=== PATIENT | male | born 1935 | race Caucasian/White ===

== ENCOUNTER 2018-04-18 07:27 | Inpatient (IN) ==
--- NOTE | 2018-04-18 07:39 | Emergency Department Note ---
Disposition Clinical Impression: Weakness, Hyponatremia Disposition: Transfer Short-Term Hosp Condition: Serious Time of Disposition: 09:01 ( to admit) Weakness HPI - General Chief complaint: ED General Medical Stated complaint: LOW BACK PAIN POST FALL Time Seen by Provider: 04/18/18 07:27 Source: patient, family, EMS Mode of arrival: EMS Limitations: altered mental status, physical limitation, age Nursing Notes Reviewed: Yes Vital Signs Reviewed: Yes - History of Present Illness HPI Narrative: Patient has presented by EMS with complaint of generalized weakness and frequent falls. He has a history of Parkinson's but with this some generalized increased weakness over the course of months. He had a fall yesterday evening and was laying forward on the floor. Squad was called as he could not get up and they did assist him off the floor. He indicated that he "felt fine" and the patient was not transported to the emergency department. He slept tonight on a mattress on the floor and again was too weak and "unable to get up". The squad was called again and he has been brought in for evaluation. He states this morning that he "just could not move". He does have low back pain with a history of herniated disc in his back. He states his back pain is a little worse. His family states he seems a little more confused. He denies hitting his head but he does have trauma from a previous fall. He required suture repair his right forehead. He has recently started on Zoloft a couple days ago. Denies other change in medicines. Denies fevers or chills but did have some nausea and vomited once yesterday evening. They think this might of been just related to them trying to get off the floor. He has not been having diarrhea, abdominal pain or bloody or black stools. Denies chest pain or any abnormal shortness of breath. They do note that he has some asthma. He has not been having cough or congestion. He denies any headache or visual changes. He does have a scab from a fall on January 31 still on the right side of his forehead. Family was concerned that he might be dehydrated. He has been maintaining oral intake. They do not understand why he has "just weak all over ". Pt Subjective Complaint: generalized weakness/fatigue Onset (ago): month(s) Duration: gradually worsening Location: generalized Pain Severity: moderate If pain, quality: aching Improves with: none Worsens with: none Context: new medication, trauma/injury Associated symptoms: Reports: confusion. Denies: chest pain, dark stools, diaphoresis, dysuria, easy bruising, fever/chills, headaches, loss of appetite, nausea/vomiting, myalgias, rash, shortness of breath, syncope - Related Data Home Medications Medication Instructions Recorded Confirmed Fluticasone/Salmeterol [Advair 1 puff IH BID 06/18/15 04/18/18 250-50 Diskus] Omeprazole [PriLOSEC] 40 mg PO DAILY 06/18/15 04/18/18 Simvastatin [Zocor] 40 mg PO DAILY 06/18/15 04/18/18 Carbidopa/Levodopa 25/100 [Sinemet 1 each PO BID 04/18/18 04/18/18 25/100] Carbidopa/Levodopa 25/100 [Sinemet 1.5 each PO QAM 04/18/18 04/18/18 25100] Rivastigmine Tartrate (oral) 4.5 mg PO BID 04/18/18 04/18/18 [Exelon] Sertraline [Zoloft] 50 mg PO DAILY 04/18/18 04/18/18 Allergies Allergy/AdvReac Type Severity Reaction Status Date / Time No Known Allergies Allergy Verified 11/07/17 19:01 All systems ED: reviewed and negative except as stated. Past Medical History - Past Medical History Attestation: Yes The following information was validated with the patient. Source: patient, obtained from family, nursing notes reviewed Medical history: Reports: asthma, coronary artery disease, other (Parkinsonism, frequent falls) Surgical history: Reports: angioplasty/stent, herniorrhaphy, orthopedic, other ( Right shoulder repair) Psychiatric history: Reports: no psych history - Social History Smoking Status: Never smoker Smokeless Tobacco Status: No Alcohol use: Reports: heavy Drug use: Reports: none Physical Exam - General Limitations: physical limitation General appearance: in no apparent distress, other (Patient is somewhat sluggish in his responses but appropriate.) - Head Head exam: other (Patient has an old scar in scab on his right forehead without other new tenderness, swelling or abrasion.) - Eye Eye exam: Present: normal appearance, PERRL, EOMI - ENT ENT exam: normal exam, normal oropharynx, mucous membranes moist - Neck Neck exam: Present: normal inspection, full ROM, trachea midline. Absent: meningismus, lymphadenopathy - Chest Chest inspection: Present: normal inspection, symmetric chest wall rise - Respiratory Respiratory exam: Present: normal lung sounds bilaterally. Absent: respiratory distress, wheezes, prolonged expiratory phase - Cardiovascular Cardiovascular exam: Present: regular rate, normal rhythm, normal heart sounds - Abdominal Exam Abdominal exam: Present: soft, Non-Tender, normal bowel sounds. Absent: tenderness, distention, guarding, rebound, rigidity - Extremities Exam Extremities exam: Present: normal inspection, full ROM, normal capillary refill. Absent: tenderness, pedal edema - Expanded Lower Extremity Exam Neurovascular/Tendon exam: Present: normal capillary refill. Absent: motor deficit, sensory deficit, tendon deficit Gait: not tested/not observed - Neurological Exam Neurological exam: Present: alert, CN II-XII intact. Absent: motor sensory deficit - Psychiatric Psychiatric exam: Present: flat affect. Absent: agitated, anxious - Skin Skin exam: Present: warm, dry, intact, normal color. Absent: rash, diaphoresis , pallor Course Vital Signs Temperature 99.9 F H 04/18/18 07:29 Pulse Rate 64 04/18/18 07:29 Respiratory Rate 18 04/18/18 07:29 Blood Pressure 137/81 04/18/18 07:29 O2 Sat by Pulse Oximetry 96 04/18/18 07:29 Temperature 98.5 F 04/19/18 07:10 Pulse Rate 60 04/19/18 07:10 Respiratory Rate 14 04/19/18 07:10 Blood Pressure 134/75 04/19/18 07:10 O2 Sat by Pulse Oximetry 97 04/19/18 07:10 Oxygen Delivery Oxygen Delivery Room Air Weakness - Differential Diagnosis Differential Diagnosis: Likely: anemia, hypoglycemia, dehydration, metabolic - Medical Records Medical records reviewed: Yes I reviewed the patient's medical records. - Lab Data Lab results reviewed: Yes I reviewed the patient's lab results. Result diagrams: 04/19/18 04:17 04/19/18 04:17 Lab Results 04/18/18 04/18/18 04/18/18 Range/Units 07:48 07:48 09:17 WBC 12.6 H (4.3-11.1) K/mcL RBC 3.87 L (4.19-5.50) M/mcL Hgb 12.6 L (12.9-16.9) g/dL Hct 35.0 L (37.5-50.1) % MCV 90.4 (83.0-100.0) fL MCH 32.6 (28.0-33.3) pg MCHC 36.0 H (31.6-35.5) g/dL RDW 11.6 (11.5-14.5) % Plt Count 165 (140-400) K/mcL MPV 9.6 (9.4-12.4) fL Immature Gran % 0.4 (0-4) % Seg Neutrophils % 80.6 % Lymphocytes % 12.3 % Monocytes % 6.4 % Eosinophils % 0.1 % Basophils % 0.2 % Neutrophils # 10.2 H (1.6-8.9) K/mcL Lymphocytes # 1.6 (0.6-4.6) K/mcL Monocytes # 0.8 (0.0-1.3) K/mcL Eosinophils # 0.0 (0.0-0.6) K/mcL Basophils # 0.0 (0.0-0.2) K/mcL Sodium 122 L (136-145) mEq/L Potassium 4.0 (3.5-5.1) mEq/L Chloride 92 L (98-107) mEq/L Carbon Dioxide 26 (23-29) mEq/L BUN 9 (8-23) mg/dL Creatinine 0.74 (0.70-1.30) mg/dL Est GFR ( Amer) > 60 (> 60) Est GFR (Non-Af Amer) > 60 (> 60) BUN/Creatinine Ratio 12 (6-26) Glucose 110 H (70-105) mg/dL Calculated Osmolality 253 L (280-300) Calcium 8.6 (8.6-10.3) mg/dL Total Bilirubin 1.2 H (0.3-1.0) mg/dL AST 20 (13-39) Units/L ALT 13 (7-52) Units/L Alkaline Phosphatase 51 (34-104) Units/L Troponin I < 0.03 (< 0.04) ng/mL Serum Total Protein 6.2 L (6.4-8.9) g/dL Albumin 3.7 (3.5-5.7) g/dL Globulin 2.5 (2.4-3.5) g/dL Albumin/Globulin Ratio 1.5 (1.1-2.2) Urine Color Yellow (Yellow) Urine Clarity Clear (Clear) Urine pH 7.0 (5.0-8.0) pH Units Ur Specific [place] 1.015 (1.010-1.025) Urine Protein Negative (Neg-Trace) mg/dL Urine Glucose (UA) Normal (Normal) mg/dL Urine Ketones Negative (Negative) mg/dL Urine Blood Trace-intact H (Negative) Urine Nitrite Negative (Negative) Urine Bilirubin Negative (Negative) Urine Urobilinogen Normal (Normal) mg/dL Ur Leukocyte Esterase Negative (Negative) Urine Microscopic RBC 0-3 (0-3) per hpf Urine Microscopic WBC 0-3 (0-3) per hpf Ur Squamous Epith Cells Few (None-Few) per lpf Urine Mucus Few (Few) Ur Culture Indicated? NO (NO) - Radiology Data Radiology results reviewed: Yes I reviewed the patient's radiology results. ITS Impressions Chest X-Ray 04/18/18 07:36 IMPRESSION: No acute cardiopulmonary disease. D/ / Joel Moise MD / Joel Moise MD Interpreting Provider: Joel Moise MD Head CT 04/18/18 07:37 IMPRESSION: No acute intracranial abnormality. D/ / Levi Velasco MD / Levi Velasco MD Interpreting Provider: Levi Velasco MD Cervical Spine CT 04/18/18 08:01 IMPRESSION: No acute abnormality of the cervical spine. D/ / Benjamin Brown MD / Benjamin Brown MD Interpreting Provider: Benjamin Brown MD - EKG Data EKG attestation: Yes I reviewed and interpreted this EKG. EKG shows normal: sinus rhythm, intervals, QRS complexes, ST-T waves [place]/QRS: left axis deviation, RBBB (Incomplete) Interpretation: no acute changes S.B.A.Payton - Linda.[email or web address] Situation: Demographics, MOA Background: Presenting Complaint, Relevant PMH, Meds, & Allergies Assessment: Vital Signs, Course and respsone to treatment, Exam Concerns, Patient/Family Expectation, Outstanding Labs Recommendation: Barrier(s) to disposition, Recommendation based on pending studies, treatments, or consults S.B.A.Payton Report Given to: Dr Stacey Sandoval Repor Time: 08:00
[2018-04-18 07:55] LABS: Basophils % 0.2 %; Eosinophils % 0.1 %; Hemoglobin 12.6 g/dL (12.9-16.9); Immature Granulocytes % 0.4 % (0-4); Lymphocytes # 1.6 K/mcL (0.6-4.6); Lymphocytes % 12.3 %; Mean Corpuscular Hemoglobin 32.6 pg (28.0-33.3); Mean Corpuscular Volume 90.4 fL (83.0-100.0); Mean Platelet Volume 9.6 fL (9.4-12.4); Monocytes # 0.8 K/mcL (0.0-1.3); Monocytes % 6.4 %; Neutrophils # 10.2 K/mcL (1.6-8.9); Platelet Count 165 K/mcL (140-400); Red Blood Count 3.87 M/mcL (4.19-5.50); Red Cell Distribution Width 11.6 % (11.5-14.5); Segmented Neutrophils % 80.6 %
[2018-04-18 08:14] LABS: Alanine Aminotransferase 13 Units/L (7-52); Albumin 3.7 g/dL (3.5-5.7); Albumin/Globulin Ratio 1.5 (1.1-2.2); Alkaline Phosphatase 51 Units/L (34-104); Aspartate Amino Transferase 20 Units/L (13-39); BUN/Creatinine Ratio 12 (6-26); Bilirubin,Total 1.2 mg/dL (0.3-1.0); Blood Urea Nitrogen 9 mg/dL (8-23); Calcium 8.6 mg/dL (8.6-10.3); Carbon Dioxide 26 mEq/L (23-29); Chloride 92 mEq/L (98-107); Globulin 2.5 g/dL (2.4-3.5); Glucose 110 mg/dL (70-105); Osmolality,Calculated 253 (280-300); Sodium 122 mEq/L (136-145); Total Protein 6.2 g/dL (6.4-8.9); eGFR For African Americans > 60 (> 60); eGFR For Non-African Americans > 60 (> 60)
[2018-04-18 08:19] LABS: Troponin I < 0.03 ng/mL (< 0.04)
[2018-04-18] MEDS ORDERED: 0.9 % Sodium Chloride 1,000 ML IVC SCH (08:30)
[2018-04-18 09:22] LABS: Bilirubin,Urine Negative (Negative); Blood,Urine Trace-intact (Negative); Clarity,Urine Clear (Clear); Color,Urine Yellow (Yellow); Glucose,Urine (UA) Normal (Normal); Ketones,Urine Negative (Negative); Leukocyte Esterase,Urine Negative (Negative); Nitrite,Urine Negative (Negative); Protein,Urine Negative (Neg-Trace); Specific Gravity,Urine 1.015 (1.010-1.025); Urobilinogen,Urine Normal (Normal)
[2018-04-18 09:30] LABS: RBC,Urine 0-3 per hpf (0-3); Squamous Epithelial Cell,Urine Few per lpf (None-Few); WBC,Urine 0-3 per hpf (0-3)
[2018-04-18 09:31] LABS: Mucus,Urine Few (Few)
[2018-04-18] MEDS: Carbidopa/Levodopa 25/100 TABLET PO SCH ×3 (10:54→17:38)
[2018-04-18] MEDS: Budesonide/Formoterol 80/4.5 MDI IH SCH ×2 (11:07→22:16)
[2018-04-18] MEDS: 0.9 % Sodium Chloride 1,000 ML IVC SCH ×2 (11:40→23:08)
--- NOTE | 2018-04-18 12:23 | Internal Med History&Physical ---
Date of Encounter: 04/18/18 Time of Encounter: 11:45 Assessment and Plan (1) Neutrophilic leukocytosis Current visit: Yes Status: Acute Possible acute gastritis. He will have IV fluids ordered and anti-emetics will be given as needed. (2) Weakness Current visit: Yes Status: Acute Will order PT and OT evaluation. (3) Multiple falls Current visit: Yes Status: Acute As above (4) Anemia Current visit: Yes Status: Acute Will order anemia testing in a.m. Qualifiers: Anemia type: unspecified type Qualified Code(s): D64.9 - Anemia, unspecified (5) Parkinsons disease Current visit: Yes Status: Acute Continue Sinemet (6) Hyponatremia Current visit: Yes Status: Acute Possibly secondary to vomiting. Continue IV fluids and monitor labs. Internal Medicine - H&P: HPI Chief complaint: Falls, weakness Admitted From: Emergency Dept Plans for Post Hospital Care: Home History of present illness: Mr. Chaves is a 82 year old male who came to emergency room stating he has had increasing falls for several weeks to months. He had a fall the day prior to admission and required EMS personnel to assist him since he was too weak to get off the floor by himself or with family help. He was unable to get off a mattress on the floor this morning. The squad was called again and he was brought to emergency room. He was evaluated and admitted to [facility] for ongoing care needs. He reports 2 episodes of vomiting the past 24 hours. He denies diarrhea or abdominal pain. He states his falls are due to balance loss and he denies vertigo symptoms. He uses a walker for assist device in ambulation. He reports being diagnosed with Parkinson's disease 3 years ago. He denies large distribution strokes or seizures. Past Med Surg Social Fam HX - Past Medical History Medical history: asthma, coronary artery disease, other Additional medical history: PARKINSONS DZ WITH GAIT INSTABILITY AND HYPOPHONIA. Psychiatric history: no psych history - Past Surgical History Surgical History: angioplasty/stent, herniorrhaphy, orthopedic, other Additional surgical history: right shoulder, cardiac [id number] - Social History Smoking Status: Never smoker Smokeless Tobacco Status: No Alcohol use: heavy Drug use: none Internal Medicine - H&P: Meds Fluticasone/Salmeterol [Advair 250-50 Diskus] 1 puff IH BID 06/18/15 [History] Omeprazole [PriLOSEC] 40 mg PO DAILY 06/18/15 [History] Simvastatin [Zocor] 40 mg PO DAILY 06/18/15 [History] Carbidopa/Levodopa 25/100 [Sinemet 25/100] 1 each PO BID 04/18/18 [History] Carbidopa/Levodopa 25/100 [Sinemet 25/100] 1.5 each PO QAM 04/18/18 [History] Rivastigmine Tartrate (oral) [Exelon] 4.5 mg PO BID 04/18/18 [History] Sertraline [Zoloft] 50 mg PO DAILY 04/18/18 [History] 3 Allergy/AdvReac Type Severity Reaction Status Date / Time No Known Allergies Allergy Verified 11/07/17 19:01 All Systems PM: A 10-system review of systems was performed and is negative for pertinent findings except as documented above in the HPI. Review of systems: Review of systems from his July [address] [facility] hospitalization were reviewed and revised as below. Gen.: His weight has decreased from 83.263 kg on 08/16/2015 to 70.335 kg on admission now. He attributes this to decreased appetite and food intake. Cardiovascular: He has known ASHD with single coronary stent placed in 2005. Follow-up heart catheterization was done in 2011 which required no further interventions. Denies hypertension NC heart failure angina DVT or pulmonary embolus Respiratory: He smoked from age [age]. He has diagnoses of asthma. He does not wear home oxygen and has not been tested for sleep apnea GI: He denies disorders of his liver gallbladder or exocrine pancreas : Had hematuria in early adulthood but that has resolved. He denies other kidney bladder or prostate disorders Neurologic: As per history of present illness Endocrine: He has hyperlipidemia but no known diabetes or thyroid disease Hematology/oncology: He denies blood disorders or cancers. He was unaware he had anemia on labs in emergency room. 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 He does not take medication. Denies other mental health issues Musk skeletal: He has DJD of the spine but denies gout or other bone joint or muscle disorders. - Constitutional Vitals: Temp Pulse Resp BP Pulse Ox 97.6 F 69 20 137/74 96 04/18/18 10:06 04/18/18 10:06 04/18/18 10:06 04/18/18 10:06 04/18/18 10:06 Exam: Gen.: He is a well-developed well-nourished male lying in bed who appears weak but in no acute distress. He denies pain or dyspnea. HEENT: He has a scar on his right temporal area and a healing area on his right forehead that has residual scab with scar present also. Eyes: EOMI. There is no scleral icterus. Mouth: Mucosa is moist. Neck: Supple and nontender. There is no thyromegaly or adenopathy noted. Heart: Regular without murmurs gallops or ectopics Lungs: No wheezes or crackles are heard. Abdomen: Soft and nontender. No masses or guarding are noted. Extremities: He is wearing ALLISON hose and slipper socks which I did not remove. There is no pitting edema of his lower legs. He has mild DJD changes of his hands. Neurologic: No status: He is able to answer some questions and answers seem to be generally appropriate and accurate. He is not conversational spontaneously. Cranial nerves: Smile is symmetric. Forehead wrinkles bilaterally. Tongue protrudes midline. EOMI. Motor: There is no pronator drift. He has cogwheeling and rigidity on passive range of motion of his arms at the wrists and elbows. Cerebellar: Finger to nose is intact bilaterally. Skin: Warm and dry. He has ecchymosis on his arms with skin tear on his right lateral elbow area. Internal Med - H&P Results - Labs CBC & Chem 7: 04/18/18 07:48 04/18/18 07:48 - VTE Documentation of Mechanical Device: Graduated compression elastic hosiery
--- NOTE | 2018-04-18 12:37 | Electrocardiograph Report ---
[address] [address] Test Date: 2018-04-18 Pat Name: Lavonne Chaves Department: [id number] Room: [facility] Gender: M Brush [employer] Machine: [id number] : 1935 Requested By: Dm Butts Order Number: [id number] Reading MD: Juanpablo Starkey Measurements Intervals [place] Rate: 63 P: 52 AR: 184 QRS: -43 QRSD: 101 T: -1 QT: 400 QTc: 408 Interpretive Statements SINUS RHYTHM MARKED LEFT AXIS DEVIATION LOW QRS VOLTAGE IN PRECORDIAL LEADS INCOMPLETE RIGHT BUNDLE BRANCH BLOCK Poor R wave progression Electronically Signed On 04-18-2018 12:36:01 EDT by Juanpablo Starkey
[2018-04-18] MEDS: Rivastigmine Tartrate (oral) 1.5 MG CAPSULE PO SCH ×2 (12:56→22:24)
[2018-04-19 06:12] LABS: Basophils % 0.4 %; Eosinophils # 0.2 K/mcL (0.0-0.6); Eosinophils % 2.4 %; Hematocrit 34.1 % (37.5-50.1); Hemoglobin 11.9 g/dL (12.9-16.9); Immature Granulocytes % 0.4 % (0-4); Lymphocytes # 1.9 K/mcL (0.6-4.6); Lymphocytes % 25.4 %; Mean Corpuscular HGB Conc 34.9 g/dL (31.6-35.5); Mean Corpuscular Hemoglobin 32.2 pg (28.0-33.3); Mean Corpuscular Volume 92.2 fL (83.0-100.0); Mean Platelet Volume 10.1 fL (9.4-12.4); Monocytes # 0.7 K/mcL (0.0-1.3); Monocytes % 9.2 %; Neutrophils # 4.7 K/mcL (1.6-8.9); Platelet Count 163 K/mcL (140-400); Red Cell Distribution Width 11.9 % (11.5-14.5); Segmented Neutrophils % 62.2 %
[2018-04-19] MEDS: Carbidopa/Levodopa 25/100 TABLET PO SCH ×3 (06:14→17:14)
[2018-04-19 06:47] LABS: BUN/Creatinine Ratio 13 (6-26); Blood Urea Nitrogen 8 mg/dL (8-23); Calcium 8.1 mg/dL (8.6-10.3); Carbon Dioxide 24 mEq/L (23-29); Chloride 97 mEq/L (98-107); Glucose 84 mg/dL (70-105); Osmolality,Calculated 262 (280-300); Potassium 3.5 mEq/L (3.5-5.1); Sodium 127 mEq/L (136-145); eGFR For African Americans > 60 (> 60); eGFR For Non-African Americans > 60 (> 60)
[2018-04-19 07:01] LABS: Thyroid Stimulating Hormone 2.075 mcIU/mL (0.340-5.600)
--- NOTE | 2018-04-19 09:10 | Internal Med Progress Note ---
Date of Encounter: 04/19/18 Time of Encounter: 08:55 - Assessment and plan (1) Neutrophilic leukocytosis Current Visit: Yes Status: Acute Assessment and plan: April 19. Resolved. Continue present regimen. (2) Weakness Current Visit: Yes Status: Acute Assessment and plan: April 19. Awaiting therapy evaluation. (3) Multiple falls Current Visit: Yes Status: Acute Assessment and plan: April 19. As above. (4) Anemia Current Visit: Yes Status: Acute Assessment and plan: April 19. Anemia testing pending Qualifiers: Anemia type: unspecified type Qualified Code(s): D64.9 - Anemia, unspecified (5) Parkinsons disease Current Visit: Yes Status: Acute Assessment and plan: April 19. Continue Sinemet (6) Hyponatremia Current Visit: Yes Status: Acute Assessment and plan: April 19. Improved. Continue IV fluids - Subjective Interval history: April 19. He has no new complaints and feels better. - Constitutional Vitals: Temp Pulse Resp BP Pulse Ox 98.5 F 60 14 134/75 97 04/19/18 07:10 04/19/18 07:10 04/19/18 07:10 04/19/18 07:10 04/19/18 07:10 Exam: He is resting comfortably in bed. He is more awake and alert and answers questions with shorter response time. His affect is bright and cheerful. I reviewed his medications. I discussed pertinent lab results with patient and . Internal Medicine: Result - Labs CBC & Chem 7: 04/19/18 04:17 04/19/18 04:17 Labs: Short CBC 04/19/18 Range/Units 04:17 WBC 7.6 (4.3-11.1) K/mcL Hgb 11.9 L (12.9-16.9) g/dL Hct 34.1 L (37.5-50.1) % Plt Count 163 (140-400) K/mcL Neutrophils # 4.7 (1.6-8.9) K/mcL BMP 04/19/18 04:17 Sodium 127 L Potassium 3.5 Chloride 97 L Carbon Dioxide 24 BUN 8 Creatinine 0.64 L Glucose 84 Calcium 8.1 L - VTE Documentation of Mechanical Device: Graduated compression elastic hosiery Consult Discharge Plan - Plan Referrals: Ronald Becerril DO [Primary Care Provider] - 1 week
[2018-04-19 09:28] LABS: % Iron Saturation 18 % (20-55); Iron 42 mcg/dL (65-175); Transferrin 166 mg/dL (203-362)
[2018-04-19 09:47] LABS: Ferritin 218 ng/mL (20-250)
[2018-04-19] MEDS: Rivastigmine Tartrate (oral) 1.5 MG CAPSULE PO SCH ×2 (09:51→20:47)
[2018-04-19 09:52] LABS: Folate 8.2 ng/mL (3.0-16.0)
[2018-04-19] MEDS: Budesonide/Formoterol 80/4.5 MDI IH SCH ×2 (10:24→21:02)
[2018-04-19] MEDS: 0.9 % Sodium Chloride 1,000 ML IVC SCH (12:07)
[2018-04-19] MEDS ORDERED: Cyanocobalamin (B-12) 1,000 MCG/ML VIAL IM ONE (14:09)
[2018-04-19] MEDS: Erythromycin OPTH Oint BOTH EYES SCH (20:47)
[2018-04-20] MEDS: 0.9 % Sodium Chloride 1,000 ML IVC SCH (06:10)
[2018-04-20] MEDS: Carbidopa/Levodopa 25/100 TABLET PO SCH ×3 (06:12→18:14)
[2018-04-20 07:05] LABS: Basophils # 0.1 K/mcL (0.0-0.2); Basophils % 0.7 %; Eosinophils # 0.3 K/mcL (0.0-0.6); Eosinophils % 4.2 %; Hematocrit 31.5 % (37.5-50.1); Hemoglobin 11.2 g/dL (12.9-16.9); Immature Granulocytes % 0.4 % (0-4); Lymphocytes % 26.2 %; Mean Corpuscular HGB Conc 35.6 g/dL (31.6-35.5); Mean Corpuscular Hemoglobin 32.7 pg (28.0-33.3); Mean Corpuscular Volume 91.8 fL (83.0-100.0); Mean Platelet Volume 10.2 fL (9.4-12.4); Monocytes # 0.7 K/mcL (0.0-1.3); Monocytes % 8.6 %; Neutrophils # 4.5 K/mcL (1.6-8.9); Platelet Count 147 K/mcL (140-400); Red Blood Count 3.43 M/mcL (4.19-5.50); Red Cell Distribution Width 11.9 % (11.5-14.5); Segmented Neutrophils % 59.9 %
[2018-04-20 07:22] LABS: BUN/Creatinine Ratio 14 (6-26); Blood Urea Nitrogen 9 mg/dL (8-23); Calcium 8.2 mg/dL (8.6-10.3); Carbon Dioxide 26 mEq/L (23-29); Chloride 97 mEq/L (98-107); Cholesterol 81 mg/dL (< 200); Glucose 92 mg/dL (70-105); HDL Cholesterol 40 mg/dL (40-59); LDL Cholesterol,Calculated 32 mg/dL (0-99); Osmolality,Calculated 264 (280-300); Potassium 3.7 mEq/L (3.5-5.1); Sodium 128 mEq/L (136-145); Triglycerides 45 mg/dL (< 150); eGFR For African Americans > 60 (> 60); eGFR For Non-African Americans > 60 (> 60)
[2018-04-20] MEDS: Erythromycin OPTH Oint BOTH EYES SCH ×2 (09:04→22:57)
[2018-04-20] MEDS: Artificial Tears SOLN 15 ML BOTTLE BOTH EYES SCH (09:04)
[2018-04-20] MEDS: Budesonide/Formoterol 80/4.5 MDI IH SCH ×2 (10:39→20:53)
--- NOTE | 2018-04-20 15:16 | Internal Med Progress Note ---
Date of Encounter: 04/20/18 Time of Encounter: 15:05 - Assessment and plan (1) Neutrophilic leukocytosis Current Visit: Yes Status: Acute Assessment and plan: April 19. Resolved. Continue present regimen. (2) Weakness Current Visit: Yes Status: Acute Assessment and plan: April 19. Awaiting therapy evaluation. April 20. Continue therapy interventions. (3) Multiple falls Current Visit: Yes Status: Acute Assessment and plan: April 19. As above. (4) Anemia Current Visit: Yes Status: Acute Assessment and plan: April 19. Anemia testing pending April 20. Anemia testing showed iron 42, transferrin saturation 18%, transferrin 166, ferritin 218, B12 178, and folate 8.2. He has received a B12 injection and will be started on oral ferrous sulfate with vitamin C. Qualifiers: Anemia type: unspecified type Qualified Code(s): D64.9 - Anemia, unspecified (5) Parkinsons disease Current Visit: Yes Status: Acute Assessment and plan: April 19. Continue Sinemet (6) Hyponatremia Current Visit: Yes Status: Acute Assessment and plan: April 19. Improved. Continue IV fluids April 20. Slightly improved to 128. We will discontinue IV fluid since oral intake is adequate. (7) Hyperlipidemia Current Visit: Yes Status: Chronic Assessment and plan: April 20. Lipid profile showed total cholesterol 81, triglycerides 45, LDL 32, HDL 40, and total/ratio of 2.0. Will discontinue statin. Qualifiers: Hyperlipidemia type: unspecified Qualified Code(s): E78.5 - Hyperlipidemia , unspecified - Subjective Interval history: April 19. He has no new complaints and feels better. April 20. He has no new complaints. He specifically denies pain or dyspnea. He reports in a slightly rambling story walking around the hospital between 0300 and 0530 this morning with community friends - Constitutional Vitals: Temp Pulse Resp BP Pulse Ox 98.7 F 57 14 132/71 96 04/20/18 06:54 04/20/18 06:54 04/20/18 10:34 04/20/18 06:54 04/20/18 10:34 Exam: His affect is bright and cheerful. He answers questions generally appropriate. I reviewed his medications and lab results. Internal Medicine: Result - Labs CBC & Chem 7: 04/20/18 06:29 04/20/18 06:29 Labs: Short CBC 04/20/18 Range/Units 06:29 WBC 7.5 (4.3-11.1) K/mcL Hgb 11.2 L (12.9-16.9) g/dL Hct 31.5 L (37.5-50.1) % Plt Count 147 (140-400) K/mcL Neutrophils # 4.5 (1.6-8.9) K/mcL BMP 04/20/18 06:29 Sodium 128 L Potassium 3.7 Chloride 97 L Carbon Dioxide 26 BUN 9 Creatinine 0.65 L Glucose 92 Calcium 8.2 L - VTE Documentation of Mechanical Device: Graduated compression elastic hosiery Consult Discharge Plan - Plan Referrals: Ronald Becerril DO [Primary Care Provider] - 1 week
[2018-04-20] MEDS: Rivastigmine Tartrate (oral) 1.5 MG CAPSULE PO SCH ×2 (17:00→22:58)
[2018-04-20] MEDS: Ascorbic Acid 500 MG TABLET PO SCH (18:14)
[2018-04-21] MEDS: Ascorbic Acid 500 MG TABLET PO SCH (06:23)
[2018-04-21] MEDS: Carbidopa/Levodopa 25/100 TABLET PO SCH ×3 (06:23→17:03)
[2018-04-21] MEDS ORDERED: Ascorbic Acid 500 MG TABLET PO SCH (06:30)
[2018-04-21] MEDS: Artificial Tears SOLN 15 ML BOTTLE BOTH EYES SCH (08:21)
[2018-04-21] MEDS: Rivastigmine Tartrate (oral) 1.5 MG CAPSULE PO SCH (08:21)
[2018-04-21] MEDS: Erythromycin OPTH Oint BOTH EYES SCH (08:21)
[2018-04-21] MEDS: Budesonide/Formoterol 80/4.5 MDI IH SCH (10:51)
[2018-04-21 14:46] VITALS: BP 125/70
--- NOTE | 2018-04-21 16:30 | Discharge Summary ---
Date of Encounter: 04/21/18 Time of Encounter: 16:20 - Discharge Diagnosis (1) Neutrophilic leukocytosis Priority: Primary Status: Resolved (2) Weakness Priority: Secondary Status: Chronic (3) Multiple falls Priority: Secondary Status: Chronic (4) Anemia Priority: Secondary Status: Acute Qualifiers: Anemia type: unspecified type Qualified Code(s): D64.9 - Anemia, unspecified (5) Parkinsons disease Priority: Secondary Status: Chronic (6) Hyponatremia Priority: Secondary Status: Acute (7) Hyperlipidemia Priority: Secondary Status: Chronic Qualifiers: Hyperlipidemia type: unspecified Qualified Code(s): E78.5 - Hyperlipidemia , unspecified Hospital course: Mr. Chaves is a 82 year old male who came to emergency room stating he has had increasing falls for several weeks to months. He had a fall the day prior to admission and required EMS personnel to assist him since he was too weak to get off the floor by himself or with family help. He was unable to get off a mattress on the floor this morning. The squad was called again and he was brought to emergency room. He was evaluated and admitted to [facility] for ongoing care needs. Initial orders were written by the emergency room physician. I saw him on April 18 and performed the history and physical. Follow-up lab work on April 19 showed resolution of neutrophilic leukocytosis. He remained afebrile after the first hospital day and no further workup was done. Anemia testing showed iron 42, transferrin saturation 18%, transferrin 166, ferritin 218, B12 178, and folate 8.2. He was given oral ferrous sulfate with vitamin C. He was given a B12 injection IM. Oral B12 supplementation will be given in swing bed with continuation of ferrous sulfate and vitamin C. Physical therapy and occupational therapy evaluations with ongoing interventions were done. He made some progress but it was felt to benefit from additional therapy in swing bed. MMSE score was 15/30. I felt he possibly had Lewy body dementia. On April 21 arrangements were complete for him to be discharged to swing bed for ongoing care needs. - Time Spent with Patient Total time spent providing and/or coordinating discharge services: - Discharge Medications Home Medications: Fluticasone/Salmeterol [Advair 250-50 Diskus] 1 puff IH BID 06/18/15 [History] Carbidopa/Levodopa 25/100 [Sinemet 25/100] 1 each PO BID 04/18/18 [History] Carbidopa/Levodopa 25/100 [Sinemet 25/100] 1.5 each PO QAM 04/18/18 [History] Artificial Tears SOLN [Akwa Tears] 1 drop BOTH EYES DAILY bottle 04/21/18 [Rx] Ascorbic Acid [Vitamin C] 500 mg PO 0630 tablet 04/21/18 [Rx] Ferrous Sulfate 325 mg PO 0630 tablet 04/21/18 [Rx] Omeprazole [PriLOSEC] 40 mg PO DAILY@0630 PRN capsule.dr 04/21/18 [Rx] Potassium Chloride 10 meq PO BIDWM tab.er.prt 04/21/18 [Rx] Rivastigmine Tartrate (oral) [Exelon] 3 mg PO BID capsule 04/21/18 [Rx] Sertraline [Zoloft] 25 mg PO HS tablet 04/21/18 [Rx] Allergies/Adverse Reactions: 3 Allergy/AdvReac Type Severity Reaction Status Date / Time No Known Allergies Allergy Verified 11/07/17 19:01 Date of admission: 04/18/18 09:44 Primary care physician: Ronald Becerril, Consults: 04/18/18 12:32 Consult to Occupational Therapy [CONS] Routine Comment: Evaluate, develop and implement POC Reason for Consult: Multiple falls Does patient have active BEDREST order?: No Is patient medically & hemodynamically stable?: Yes Patient assessed for mobility or mobilized this visit?: Yes Consult to Physical Therapy [CONS] Routine Comment: Evaluate, develop and implement POC Reason for Consult: Multiple falls Does patient have active BEDREST order?: No Is patient medically & hemodynamically stable?: Yes Patient assessed for mobility or mobilized this visit?: Yes 04/18/18 15:52 Consult to Nutrition [CONS] Routine Comment: Consulting Provider: NUTRITION Reason for Dietary Consult: MST Score - Constitutional Vitals: Temp Pulse Resp BP Pulse Ox 97.4 F L 76 16 125/70 97 04/21/18 14:45 04/21/18 14:45 04/21/18 14:45 04/21/18 14:45 04/21/18 14:45 - Patient Status Disposition: Transfer Hospital Swing Bed Condition: Serious - Discharge Instructions - Diet and Activity Activity: as per physical therapy Diet: regular diet - VTE Documentation of Mechanical Device: Graduated compression elastic hosiery
== END 2018-04-21 18:07 | disposition other institution (70) | DRG 57 ==
LOC: EMEROOPIK 07:27 → INPPIK 07:27
PROVIDERS: ADMIT Internal Medicine; ATTEND Internal Medicine

== ENCOUNTER 2018-04-20 18:39 | Inpatient (IN) ==
[2018-04-21] MEDS: Rivastigmine Tartrate (oral) 1.5 MG CAPSULE PO SCH (19:56)
[2018-04-21] MEDS: Carbidopa/Levodopa 25/100 TABLET PO SCH (19:56)
[2018-04-21] MEDS: Budesonide/Formoterol 80/4.5 MDI IH SCH (21:29)
[2018-04-22 04:55] LABS: Basophils % 0.6 %; Eosinophils # 0.4 K/mcL (0.0-0.6); Eosinophils % 6.1 %; Hematocrit 33.9 % (37.5-50.1); Hemoglobin 11.8 g/dL (12.9-16.9); Immature Granulocytes % 0.6 % (0-4); Lymphocytes # 2.3 K/mcL (0.6-4.6); Lymphocytes % 35.5 %; Mean Corpuscular HGB Conc 34.8 g/dL (31.6-35.5); Mean Corpuscular Hemoglobin 32.2 pg (28.0-33.3); Mean Corpuscular Volume 92.4 fL (83.0-100.0); Mean Platelet Volume 9.5 fL (9.4-12.4); Monocytes # 0.7 K/mcL (0.0-1.3); Monocytes % 10.1 %; Platelet Count 169 K/mcL (140-400); Red Blood Count 3.67 M/mcL (4.19-5.50); Red Cell Distribution Width 12.1 % (11.5-14.5); Segmented Neutrophils % 47.1 %
[2018-04-22 05:05] LABS: INR 1.1; Prothrombin Time 12.3 Seconds (9.4-12.1)
[2018-04-22 05:07] LABS: Activated Partial Thrombo Time 33.3 Seconds (26.0-36.0)
[2018-04-22 05:15] LABS: BUN/Creatinine Ratio 12 (6-26); Blood Urea Nitrogen 9 mg/dL (8-23); Calcium 8.7 mg/dL (8.6-10.3); Carbon Dioxide 28 mEq/L (23-29); Chloride 95 mEq/L (98-107); Glucose 95 mg/dL (70-105); Osmolality,Calculated 262 (280-300); Potassium 4.4 mEq/L (3.5-5.1); Sodium 127 mEq/L (136-145); eGFR For African Americans > 60 (> 60); eGFR For Non-African Americans > 60 (> 60)
[2018-04-22] MEDS: Ascorbic Acid 500 MG TABLET PO SCH (05:44)
[2018-04-22] MEDS: Rivastigmine Tartrate (oral) 1.5 MG CAPSULE PO SCH ×2 (08:38→20:50)
[2018-04-22] MEDS: Artificial Tears SOLN 15 ML BOTTLE BOTH EYES SCH (08:42)
[2018-04-22] MEDS ORDERED: Carbidopa/Levodopa 25/100 TABLET PO SCH (09:00)
[2018-04-22] MEDS: Budesonide/Formoterol 80/4.5 MDI IH SCH ×2 (09:42→22:07)
--- NOTE | 2018-04-22 10:29 | Internal Med Progress Note ---
Date of Encounter: 04/22/18 Time of Encounter: 10:15 - Assessment and plan (1) Weakness Current Visit: No Status: Chronic Assessment and plan: April 22. Continue PT and OT intervention. (2) Lewy body dementia Current Visit: Yes Status: Acute Assessment and plan: Probable diagnosis based on clinical findings. Family had not heard this diagnoses mentioned by his neurologist in [place]. Exelon was decreased during acute care. Family admits use did not make any improvement clinically and is agreeable to continuing taper. Qualifiers: Dementia behavioral disturbance: without behavioral disturbance Qualified Code(s): G31.83 - Dementia with Lewy bodies; F02.80 - Dementia in other diseases classified elsewhere without behavioral disturbance (3) Hyponatremia Current Visit: No Status: Acute Assessment and plan: April 22. Minimally changed. Continue to monitor. (4) Anemia Current Visit: No Status: Acute Assessment and plan: April 22. Continue ferrous sulfate with vitamin C. Will start oral B12 supplement. Qualifiers: Anemia type: unspecified type Qualified Code(s): D64.9 - Anemia, unspecified (5) Parkinsons disease Current Visit: No Status: Chronic Assessment and plan: April 22. Continue Sinemet - Subjective Interval history: April 22. He was hospitalized in acute-care April 18 after presenting with weakness and falls at home. Neutrophilic leukocytosis felt to be possibly secondary to acute gastritis resolved rapidly. Anemia testing showed B12 and iron deficiency. Treatment was given and will be continued. Hyponatremia showed minimal change. Statins were discontinued when lipid profile reflected improvement from weight loss. Swing bed was recommended to continue therapy for strengthening and balance. He has no new complaints today. - Constitutional Vitals: Temp Pulse Resp BP Pulse Ox 98.6 F 61 16 127/79 97 04/22/18 06:19 04/22/18 06:19 04/22/18 06:19 04/22/18 06:19 04/22/18 09:42 Exam: He is sitting in a chair at bedside resting comfortably. Affect is flat. Speech is short answers that are appropriate. He is not conversational. I reviewed his medications and lab results. Internal Medicine: Result - Labs CBC & Chem 7: 04/22/18 04:36 04/22/18 04:36 Labs: Short CBC 04/22/18 Range/Units 04:36 WBC 6.4 (4.3-11.1) K/mcL Hgb 11.8 L (12.9-16.9) g/dL Hct 33.9 L (37.5-50.1) % Plt Count 169 (140-400) K/mcL Neutrophils # 3.0 (1.6-8.9) K/mcL BMP 04/22/18 04:36 Sodium 127 L Potassium 4.4 Chloride 95 L Carbon Dioxide 28 BUN 9 Creatinine 0.73 Glucose 95 Calcium 8.7 - ABG Interpretation ABG results: PT/INR, D-dimer PT 12.3 Seconds (9.4-12.1) H 04/22/18 04:36 Consult Discharge Plan - Plan Referrals: Ronald Becerril DO [Primary Care Provider] - 1 week
[2018-04-22] MEDS: Carbidopa/Levodopa 25/100 TABLET PO SCH (17:14)
[2018-04-22] MEDS: Acetaminophen 325 MG TABLET PO PRN (18:55)
[2018-04-23] MEDS: Ascorbic Acid 500 MG TABLET PO SCH (05:45)
[2018-04-23] MEDS: Carbidopa/Levodopa 25/100 TABLET PO SCH ×3 (09:20→16:39)
[2018-04-23] MEDS: Cyanocobalamin (B-12) 1,000 MCG TABLET PO SCH (09:21)
[2018-04-23] MEDS: Rivastigmine Tartrate (oral) 1.5 MG CAPSULE PO SCH ×2 (09:22→20:07)
[2018-04-23] MEDS: Artificial Tears SOLN 15 ML BOTTLE BOTH EYES SCH (09:23)
[2018-04-23] MEDS: Budesonide/Formoterol 80/4.5 MDI IH SCH ×2 (10:01→22:15)
--- NOTE | 2018-04-23 11:42 | Internal Med Progress Note ---
Date of Encounter: 04/23/18 Time of Encounter: 11:30 - Assessment and plan (1) Weakness Current Visit: No Status: Chronic Assessment and plan: April 22. Continue PT and OT intervention. (2) Lewy body dementia Current Visit: Yes Status: Acute Assessment and plan: April 22. Probable diagnosis based on clinical findings. Family had not heard this diagnoses mentioned by his neurologist in [place]. Exelon was decreased during acute care. Family admits use did not make any improvement clinically and is agreeable to continuing taper. April 23. Continue present management. Qualifiers: Dementia behavioral disturbance: without behavioral disturbance Qualified Code(s): G31.83 - Dementia with Lewy bodies; F02.80 - Dementia in other diseases classified elsewhere without behavioral disturbance (3) Hyponatremia Current Visit: No Status: Acute Assessment and plan: April 22. Minimally changed. Continue to monitor. (4) Anemia Current Visit: No Status: Acute Assessment and plan: April 22. Continue ferrous sulfate with vitamin C. Will start oral B12 supplement. Qualifiers: Anemia type: unspecified type Qualified Code(s): D64.9 - Anemia, unspecified (5) Parkinsons disease Current Visit: No Status: Chronic Assessment and plan: April 22. Continue Sinemet (6) Costochondritis Current Visit: Yes Status: Acute Assessment and plan: April 23. Will give Naprosyn. - Subjective Interval history: April 22. He was hospitalized in acute-care April 18 after presenting with weakness and falls at home. Neutrophilic leukocytosis felt to be possibly secondary to acute gastritis resolved rapidly. Anemia testing showed B12 and iron deficiency. Treatment was given and will be continued. Hyponatremia showed minimal change. Statins were discontinued when lipid profile reflected improvement from weight loss. Swing bed was recommended to continue therapy for strengthening and balance. He has no new complaints today. April 23. He has no new complaints. - Constitutional Vitals: Temp Pulse Resp BP Pulse Ox 98.4 F 60 16 139/77 97 04/23/18 06:10 04/23/18 06:10 04/23/18 06:10 04/23/18 06:10 04/23/18 10:01 Exam: He is resting comfortably in a chair at bedside and appears in no acute distress. His affect is bright and cheerful. He has costosternal joint pain on light sternal compression. Internal Medicine: Result - Labs CBC & Chem 7: 04/22/18 04:36 04/22/18 04:36 - ABG Interpretation ABG results: PT/INR, D-dimer PT 12.3 Seconds (9.4-12.1) H 04/22/18 04:36 - VTE Documentation of Mechanical Device: Graduated compression elastic hosiery Consult Discharge Plan - Plan Referrals: Ronald Becerril DO [Primary Care Provider] - 1 week
[2018-04-24] MEDS: Ascorbic Acid 500 MG TABLET PO SCH (06:10)
[2018-04-24] MEDS: Carbidopa/Levodopa 25/100 TABLET PO SCH ×2 (10:21→17:44)
[2018-04-24] MEDS: Cyanocobalamin (B-12) 1,000 MCG TABLET PO SCH (10:21)
[2018-04-24] MEDS: Rivastigmine Tartrate (oral) 1.5 MG CAPSULE PO SCH ×2 (10:21→20:42)
[2018-04-24] MEDS: Artificial Tears SOLN 15 ML BOTTLE BOTH EYES SCH (10:22)
[2018-04-24] MEDS: Budesonide/Formoterol 80/4.5 MDI IH SCH ×2 (10:30→21:50)
--- NOTE | 2018-04-24 18:31 | Internal Med Progress Note ---
Date of Encounter: 04/24/18 Time of Encounter: 18:20 - Assessment and plan (1) Weakness Current Visit: No Status: Chronic Assessment and plan: April 22. Continue PT and OT intervention. (2) Lewy body dementia Current Visit: Yes Status: Acute Assessment and plan: April 22. Probable diagnosis based on clinical findings. Family had not heard this diagnoses mentioned by his neurologist in [place]. Exelon was decreased during acute care. Family admits use did not make any improvement clinically and is agreeable to continuing taper. April 23. Continue present management. Qualifiers: Dementia behavioral disturbance: without behavioral disturbance Qualified Code(s): G31.83 - Dementia with Lewy bodies; F02.80 - Dementia in other diseases classified elsewhere without behavioral disturbance (3) Hyponatremia Current Visit: No Status: Acute Assessment and plan: April 22. Minimally changed. Continue to monitor. (4) Anemia Current Visit: No Status: Acute Assessment and plan: April 22. Continue ferrous sulfate with vitamin C. Will start oral B12 supplement. Qualifiers: Anemia type: unspecified type Qualified Code(s): D64.9 - Anemia, unspecified (5) Parkinsons disease Current Visit: No Status: Chronic Assessment and plan: April 22. Continue Sinemet (6) Costochondritis Current Visit: Yes Status: Acute Assessment and plan: April 23. Will give Naprosyn. April 24. He did not mention any further chest pain. Will change Naprosyn to prn. - Subjective Interval history: April 22. He was hospitalized in acute-care April 18 after presenting with weakness and falls at home. Neutrophilic leukocytosis felt to be possibly secondary to acute gastritis resolved rapidly. Anemia testing showed B12 and iron deficiency. Treatment was given and will be continued. Hyponatremia showed minimal change. Statins were discontinued when lipid profile reflected improvement from weight loss. Swing bed was recommended to continue therapy for strengthening and balance. He has no new complaints today. April 23. He has no new complaints. April 24. He has no new complaints. He inquires when he can be discharged home. - Constitutional Vitals: Temp Pulse Resp BP Pulse Ox 97.4 F L 60 14 144/78 94 04/24/18 06:46 04/24/18 06:46 04/24/18 10:30 04/24/18 06:46 04/24/18 10:30 Exam: He is resting comfortably in a chair at bedside. His affect is more bright and cheerful and he is more interactive spontaneously. I reviewed his medications and lab results. Internal Medicine: Result - Labs CBC & Chem 7: 04/22/18 04:36 04/22/18 04:36 - ABG Interpretation ABG results: PT/INR, D-dimer PT 12.3 Seconds (9.4-12.1) H 04/22/18 04:36 - VTE Documentation of Mechanical Device: Graduated compression elastic hosiery Consult Discharge Plan - Plan Referrals: Ronald Becerril DO [Primary Care Provider] - 1 week
[2018-04-25] MEDS: Ascorbic Acid 500 MG TABLET PO SCH (06:50)
[2018-04-25] MEDS: Rivastigmine Tartrate (oral) 1.5 MG CAPSULE PO SCH ×2 (08:45→21:18)
[2018-04-25] MEDS: Cyanocobalamin (B-12) 1,000 MCG TABLET PO SCH (08:46)
[2018-04-25] MEDS: Carbidopa/Levodopa 25/100 TABLET PO SCH ×2 (08:46→17:13)
[2018-04-25] MEDS: Artificial Tears SOLN 15 ML BOTTLE BOTH EYES SCH (08:49)
[2018-04-25] MEDS: Budesonide/Formoterol 80/4.5 MDI IH SCH ×2 (10:36→21:50)
--- NOTE | 2018-04-25 11:29 | Internal Med Progress Note ---
Date of Encounter: 04/25/18 Time of Encounter: 11:20 - Assessment and plan (1) Weakness Current Visit: No Status: Chronic Assessment and plan: April 22. Continue PT and OT intervention. April 25. Continue therapy interventions. His is exploring possible SNF placement. (2) Lewy body dementia Current Visit: Yes Status: Acute Assessment and plan: April 22. Probable diagnosis based on clinical findings. Family had not heard this diagnoses mentioned by his neurologist in [place]. Exelon was decreased during acute care. Family admits use did not make any improvement clinically and is agreeable to continuing taper. April 23. Continue present management. Qualifiers: Dementia behavioral disturbance: without behavioral disturbance Qualified Code(s): G31.83 - Dementia with Lewy bodies; F02.80 - Dementia in other diseases classified elsewhere without behavioral disturbance (3) Hyponatremia Current Visit: No Status: Acute Assessment and plan: April 22. Minimally changed. Continue to monitor. (4) Anemia Current Visit: No Status: Acute Assessment and plan: April 22. Continue ferrous sulfate with vitamin C. Will start oral B12 supplement. Qualifiers: Anemia type: unspecified type Qualified Code(s): D64.9 - Anemia, unspecified (5) Parkinsons disease Current Visit: No Status: Chronic Assessment and plan: April 22. Continue Sinemet (6) Costochondritis Current Visit: Yes Status: Acute Assessment and plan: April 23. Will give Naprosyn. April 24. He did not mention any further chest pain. Will change Naprosyn to prn. April 25. Continue Naprosyn when necessary. Encouraged him to ask for it if needed. - Subjective Interval history: April 22. He was hospitalized in acute-care April 18 after presenting with weakness and falls at home. Neutrophilic leukocytosis felt to be possibly secondary to acute gastritis resolved rapidly. Anemia testing showed B12 and iron deficiency. Treatment was given and will be continued. Hyponatremia showed minimal change. Statins were discontinued when lipid profile reflected improvement from weight loss. Swing bed was recommended to continue therapy for strengthening and balance. He has no new complaints today. April 23. He has no new complaints. April 24. He has no new complaints. He inquires when he can be discharged home. April 25. He has no new complaints. He inquired again when he will be discharged. - Constitutional Vitals: Temp Pulse Resp BP Pulse Ox 97.5 F L 71 14 136/83 94 04/25/18 06:00 04/25/18 06:00 04/25/18 10:36 04/25/18 06:00 04/25/18 10:36 Exam: He is resting comfortably in bed and appears in no acute distress. He has some costosternal tenderness on sternal compression. ( He complained of some chest pain). I reviewed his medications. I explained to him his present care needs and what might be needed for discharge care. Internal Medicine: Result - Labs CBC & Chem 7: 04/22/18 04:36 04/22/18 04:36 - ABG Interpretation ABG results: PT/INR, D-dimer PT 12.3 Seconds (9.4-12.1) H 04/22/18 04:36 - VTE Documentation of Mechanical Device: Graduated compression elastic hosiery Consult Discharge Plan - Plan Referrals: Ronald Becerril DO [Primary Care Provider] - 1 week
[2018-04-25] MEDS ORDERED: MOM Conc 10 ML UD.LIQ PO ONE (19:21)
[2018-04-26] MEDS: Ascorbic Acid 500 MG TABLET PO SCH (05:32)
[2018-04-26] MEDS: Budesonide/Formoterol 80/4.5 MDI IH SCH ×2 (09:21→21:12)
[2018-04-26] MEDS: Carbidopa/Levodopa 25/100 TABLET PO SCH ×2 (09:30→16:59)
[2018-04-26] MEDS: Rivastigmine Tartrate (oral) 1.5 MG CAPSULE PO SCH ×2 (09:30→19:44)
[2018-04-26] MEDS: Artificial Tears SOLN 15 ML BOTTLE BOTH EYES SCH (09:30)
[2018-04-26] MEDS: Cyanocobalamin (B-12) 1,000 MCG TABLET PO SCH (09:30)
--- NOTE | 2018-04-26 11:26 | Internal Med Progress Note ---
Date of Encounter: 04/26/18 Time of Encounter: 11:20 - Assessment and plan (1) Weakness Current Visit: No Status: Chronic Assessment and plan: April 22. Continue PT and OT intervention. April 25. Continue therapy interventions. His is exploring possible SNF placement. (2) Lewy body dementia Current Visit: Yes Status: Acute Assessment and plan: April 22. Probable diagnosis based on clinical findings. Family had not heard this diagnoses mentioned by his neurologist in [place]. Exelon was decreased during acute care. Family admits use did not make any improvement clinically and is agreeable to continuing taper. April 23. Continue present management. Qualifiers: Dementia behavioral disturbance: without behavioral disturbance Qualified Code(s): G31.83 - Dementia with Lewy bodies; F02.80 - Dementia in other diseases classified elsewhere without behavioral disturbance (3) Hyponatremia Current Visit: No Status: Acute Assessment and plan: April 22. Minimally changed. Continue to monitor. April 26. Recheck labs in a.m. (4) Anemia Current Visit: No Status: Acute Assessment and plan: April 22. Continue ferrous sulfate with vitamin C. Will start oral B12 supplement. April 26. Recheck labs in a.m. Qualifiers: Anemia type: unspecified type Qualified Code(s): D64.9 - Anemia, unspecified (5) Parkinsons disease Current Visit: No Status: Chronic Assessment and plan: April 22. Continue Sinemet (6) Costochondritis Current Visit: Yes Status: Acute Assessment and plan: April 23. Will give Naprosyn. April 24. He did not mention any further chest pain. Will change Naprosyn to prn. April 25. Continue Naprosyn when necessary. Encouraged him to ask for it if needed. April 26. Will give short course of prednisone and continue Naprosyn prn. - Subjective Interval history: April 22. He was hospitalized in acute-care April 18 after presenting with weakness and falls at home. Neutrophilic leukocytosis felt to be possibly secondary to acute gastritis resolved rapidly. Anemia testing showed B12 and iron deficiency. Treatment was given and will be continued. Hyponatremia showed minimal change. Statins were discontinued when lipid profile reflected improvement from weight loss. Swing bed was recommended to continue therapy for strengthening and balance. He has no new complaints today. April 23. He has no new complaints. April 24. He has no new complaints. He inquires when he can be discharged home. April 25. He has no new complaints. He inquired again when he will be discharged. April 26. He has no new complaints. He reports his chest pain has not resolved. - Constitutional Vitals: Temp Pulse Resp BP Pulse Ox 97.9 F 61 14 151/74 97 04/26/18 07:00 04/26/18 07:00 04/26/18 09:21 04/26/18 07:00 04/26/18 09:21 Exam: He is sitting comfortably in a chair at bedside. He answers questions appropriately with short answers but is not conversational. I reviewed his medications and past lab results. Internal Medicine: Result - Labs CBC & Chem 7: 04/22/18 04:36 04/22/18 04:36 - ABG Interpretation ABG results: PT/INR, D-dimer PT 12.3 Seconds (9.4-12.1) H 04/22/18 04:36 - VTE Documentation of Mechanical Device: Graduated compression elastic hosiery Consult Discharge Plan - Plan Referrals: Ronald Becerril DO [Primary Care Provider] - 1 week
[2018-04-26] MEDS: Acetaminophen 325 MG TABLET PO PRN (14:00)
[2018-04-26] MEDS: predniSONE 10 MG TABLET PO SCH (16:58)
[2018-04-27] MEDS: Ascorbic Acid 500 MG TABLET PO SCH (06:06)
[2018-04-27 06:22] LABS: Basophils # 0.1 K/mcL (0.0-0.2); Basophils % 0.7 %; Eosinophils # 0.1 K/mcL (0.0-0.6); Eosinophils % 1.1 %; Hematocrit 33.8 % (37.5-50.1); Hemoglobin 11.5 g/dL (12.9-16.9); Immature Granulocytes % 0.7 % (0-4); Lymphocytes # 2.1 K/mcL (0.6-4.6); Lymphocytes % 28.5 %; Mean Corpuscular Hemoglobin 32.3 pg (28.0-33.3); Mean Corpuscular Volume 94.9 fL (83.0-100.0); Mean Platelet Volume 9.6 fL (9.4-12.4); Monocytes # 0.6 K/mcL (0.0-1.3); Monocytes % 8.4 %; Neutrophils # 4.5 K/mcL (1.6-8.9); Platelet Count 192 K/mcL (140-400); Red Blood Count 3.56 M/mcL (4.19-5.50); Segmented Neutrophils % 60.6 %
[2018-04-27 06:44] LABS: BUN/Creatinine Ratio 20 (6-26); Blood Urea Nitrogen 14 mg/dL (8-23); Calcium 8.6 mg/dL (8.6-10.3); Carbon Dioxide 27 mEq/L (23-29); Chloride 98 mEq/L (98-107); Glucose 109 mg/dL (70-105); Osmolality,Calculated 273 (280-300); Potassium 4.6 mEq/L (3.5-5.1); Sodium 131 mEq/L (136-145); eGFR For African Americans > 60 (> 60); eGFR For Non-African Americans > 60 (> 60)
[2018-04-27] MEDS: Rivastigmine Tartrate (oral) 1.5 MG CAPSULE PO SCH ×2 (09:37→20:07)
[2018-04-27] MEDS: Cyanocobalamin (B-12) 1,000 MCG TABLET PO SCH (09:38)
[2018-04-27] MEDS: Carbidopa/Levodopa 25/100 TABLET PO SCH ×2 (09:38→17:15)
[2018-04-27] MEDS: predniSONE 10 MG TABLET PO SCH ×2 (09:38→17:15)
[2018-04-27] MEDS: Artificial Tears SOLN 15 ML BOTTLE BOTH EYES SCH (09:45)
[2018-04-27] MEDS: Budesonide/Formoterol 80/4.5 MDI IH SCH ×2 (10:06→21:39)
[2018-04-28] MEDS: Ascorbic Acid 500 MG TABLET PO SCH (06:34)
[2018-04-28] MEDS: Carbidopa/Levodopa 25/100 TABLET PO SCH ×2 (09:45→17:25)
[2018-04-28] MEDS: Rivastigmine Tartrate (oral) 1.5 MG CAPSULE PO SCH ×2 (09:45→20:53)
[2018-04-28] MEDS: Cyanocobalamin (B-12) 1,000 MCG TABLET PO SCH (09:45)
[2018-04-28] MEDS: predniSONE 10 MG TABLET PO SCH ×2 (09:45→17:28)
[2018-04-28] MEDS: Artificial Tears SOLN 15 ML BOTTLE BOTH EYES SCH (09:45)
[2018-04-28] MEDS: Budesonide/Formoterol 80/4.5 MDI IH SCH ×2 (10:19→22:23)
--- NOTE | 2018-04-28 17:56 | Internal Med Progress Note ---
Date of Encounter: 04/28/18 Time of Encounter: 17:50 - Assessment and plan (1) Weakness Current Visit: Yes Status: Chronic Assessment and plan: 04/28/18 continue PT and OT (2) ASHD (arteriosclerotic heart disease) Current Visit: Yes Status: Chronic Assessment and plan: Chest pain seems chest wall type with costochondritis (3) Hyponatremia Current Visit: Yes Status: Acute Assessment and plan: His sodium is coming up at improving continue to monitor (4) Anemia Current Visit: Yes Status: Acute Assessment and plan: 04/28/18 continue the iron supplement B12 supplement and vitamin C supplement Qualifiers: Anemia type: unspecified type Qualified Code(s): D64.9 - Anemia, unspecified (5) Parkinsons disease Current Visit: No Status: Chronic Assessment and plan: 04/28/18 stable continue Sinemet (6) Multiple falls Current Visit: No Status: Chronic (7) Hyperlipidemia Current Visit: No Status: Chronic Assessment and plan: 04/28/18 stable Qualifiers: Hyperlipidemia type: unspecified Qualified Code(s): E78.5 - Hyperlipidemia , unspecified (8) Lewy body dementia Current Visit: Yes Status: Acute Assessment and plan: 04/28/18 we will change his Exelon to the patch from the oral pill if the agrees Qualifiers: Dementia behavioral disturbance: without behavioral disturbance Qualified Code(s): G31.83 - Dementia with Lewy bodies; F02.80 - Dementia in other diseases classified elsewhere without behavioral disturbance (9) Costochondritis Current Visit: Yes Status: Acute Assessment and plan: 04/28/18 feels about the same he is on a short course of prednisone will see how that works add incentive spirometer to keep the joint limber - Time Spent With Patient Greater than 35 minutes (Learning about the patient) - Subjective Interval history: 82-year-old female with history of Lewy body dementia and Parkinson' s. He was admitted to swing bed after having weakness and falls at home he was thought it might be from acute gastritis. He has been complaining of chest discomfort when he coughs. Discussion with he and his about costochondritis and the benefit that an incentive spirometer might help is willing to give a try. His white count came back normal so it is less likely be a pneumonia his sodium did come up to 131 which is improvement for him. Glucose was slightly high at 109 creatinine slightly low at 0.69. The nurse asked me about changing the Exelon Pill to a Patch Because He Has Problems with Swallowing. Nurse will confirm that the patient is willing to change. His mentioned that he would like to go to [facility] upon discharge. She is looking around for the extended-care facility options and decide on [place] she will communicate with Dr. Romero the social sciences chair about that. The current projected discharges on 05/04/18. Answer other questions address her concerns - Constitutional Vitals: Temp Pulse Resp BP Pulse Ox 97.7 F 78 14 142/81 97 04/28/18 06:20 04/28/18 06:20 04/28/18 10:19 04/28/18 06:20 04/28/18 10:19 Exam: General: Alert and oriented times self, no acute distress Lungs: Clear to auscultation bilaterally without wheezing or crackles Heart: Regular rate and rythms without murmer or rubs Abdomen: Soft, nontender, Extremities: no edema, redness Internal Medicine: Result - Labs CBC & Chem 7: 04/27/18 04:50 04/27/18 04:50 - ABG Interpretation ABG results: PT/INR, D-dimer PT 12.3 Seconds (9.4-12.1) H 04/22/18 04:36 - VTE Documentation of Mechanical Device: Graduated compression elastic hosiery Consult Discharge Plan - Plan Referrals: Ronald Becerril DO [Primary Care Provider] - 1 week
[2018-04-29] MEDS: Ascorbic Acid 500 MG TABLET PO SCH (06:29)
[2018-04-29] MEDS: Cyanocobalamin (B-12) 1,000 MCG TABLET PO SCH (07:44)
[2018-04-29] MEDS: predniSONE 10 MG TABLET PO SCH ×2 (07:44→17:31)
[2018-04-29] MEDS: Acetaminophen 325 MG TABLET PO PRN ×2 (07:44→17:32)
[2018-04-29] MEDS: Carbidopa/Levodopa 25/100 TABLET PO SCH ×2 (07:44→17:32)
[2018-04-29] MEDS: Rivastigmine Patch 9.5 MG PATCH.TD24 TD SCH (07:46)
[2018-04-29] MEDS: Artificial Tears SOLN 15 ML BOTTLE BOTH EYES SCH (07:52)
[2018-04-29] MEDS: Budesonide/Formoterol 80/4.5 MDI IH SCH ×2 (09:16→21:30)
[2018-04-30] MEDS: Ascorbic Acid 500 MG TABLET PO SCH (05:55)
[2018-04-30] MEDS: Artificial Tears SOLN 15 ML BOTTLE BOTH EYES SCH (07:28)
[2018-04-30] MEDS: Rivastigmine Patch 9.5 MG PATCH.TD24 TD SCH (07:29)
[2018-04-30] MEDS: Cyanocobalamin (B-12) 1,000 MCG TABLET PO SCH (07:32)
[2018-04-30] MEDS: Carbidopa/Levodopa 25/100 TABLET PO SCH ×2 (07:32→18:13)
[2018-04-30] MEDS: Budesonide/Formoterol 80/4.5 MDI IH SCH ×2 (10:21→23:00)
--- NOTE | 2018-04-30 15:00 | Internal Med Progress Note ---
Date of Encounter: 04/30/18 Time of Encounter: 14:50 - Assessment and plan (1) Weakness Current Visit: Yes Status: Chronic Assessment and plan: April 22. Continue PT and OT intervention. April 25. Continue therapy interventions. His is exploring possible SNF placement. April 30. Anticipate discharge to [facility] 05/04/2018. (2) Lewy body dementia Current Visit: Yes Status: Acute Assessment and plan: April 22. Probable diagnosis based on clinical findings. Family had not heard this diagnoses mentioned by his neurologist in [place]. Exelon was decreased during acute care. Family admits use did not make any improvement clinically and is agreeable to continuing taper. April 23. Continue present management. April 30. Will decrease Exelon (now patch) and likely discontinue completely in 1 week. Qualifiers: Dementia behavioral disturbance: without behavioral disturbance Qualified Code(s): G31.83 - Dementia with Lewy bodies; F02.80 - Dementia in other diseases classified elsewhere without behavioral disturbance (3) Hyponatremia Current Visit: Yes Status: Acute Assessment and plan: April 22. Minimally changed. Continue to monitor. April 26. Recheck labs in a.m. April 30. Sodium improved to 131. Continue present management. (4) Anemia Current Visit: Yes Status: Acute Assessment and plan: April 22. Continue ferrous sulfate with vitamin C. Will start oral B12 supplement. April 26. Recheck labs in a.m. April 30. Hemoglobin minimally changed at 11.5. Continue present management. Qualifiers: Anemia type: unspecified type Qualified Code(s): D64.9 - Anemia, unspecified (5) Parkinsons disease Current Visit: No Status: Chronic Assessment and plan: April 22. Continue Sinemet (6) Costochondritis Current Visit: Yes Status: Acute Assessment and plan: April 23. Will give Naprosyn. April 24. He did not mention any further chest pain. Will change Naprosyn to prn. April 25. Continue Naprosyn when necessary. Encouraged him to ask for it if needed. April 26. Will give short course of prednisone and continue Naprosyn prn. April 30. Prednisone seems minimally effective. Will discontinue it and return to scheduled Naprosyn - Subjective Interval history: April 22. He was hospitalized in acute-care April 18 after presenting with weakness and falls at home. Neutrophilic leukocytosis felt to be possibly secondary to acute gastritis resolved rapidly. Anemia testing showed B12 and iron deficiency. Treatment was given and will be continued. Hyponatremia showed minimal change. Statins were discontinued when lipid profile reflected improvement from weight loss. Swing bed was recommended to continue therapy for strengthening and balance. He has no new complaints today. April 23. He has no new complaints. April 24. He has no new complaints. He inquires when he can be discharged home. April 25. He has no new complaints. He inquired again when he will be discharged. April 26. He has no new complaints. He reports his chest pain has not resolved. April 30. He has no new complaints. He still has costosternal joint pain worsened with cough and deep inspiration. - Constitutional Vitals: Temp Pulse Resp BP Pulse Ox 98.3 F 83 14 128/79 97 04/30/18 06:37 04/30/18 06:37 04/30/18 10:24 04/30/18 06:37 04/30/18 10:24 Exam: He is resting comfortably in bed and appears in no acute distress. His affect is bright and cheerful. I reviewed his medications and lab results. Internal Medicine: Result - Labs CBC & Chem 7: 04/27/18 04:50 04/27/18 04:50 - ABG Interpretation ABG results: PT/INR, D-dimer PT 12.3 Seconds (9.4-12.1) H 04/22/18 04:36 - VTE Documentation of Mechanical Device: Graduated compression elastic hosiery Consult Discharge Plan - Plan Referrals: Ronald Becerril DO [Primary Care Provider] - 1 week
[2018-04-30] MEDS: Rivastigmine Patch 4.6 MG PATCH.TD24 TD SCH (17:44)
[2018-05-01] MEDS: Ascorbic Acid 500 MG TABLET PO SCH (05:40)
[2018-05-01] MEDS: Budesonide/Formoterol 80/4.5 MDI IH SCH ×2 (10:01→22:28)
[2018-05-01] MEDS: Artificial Tears SOLN 15 ML BOTTLE BOTH EYES SCH (10:19)
[2018-05-01] MEDS: Rivastigmine Patch 4.6 MG PATCH.TD24 TD SCH (10:19)
[2018-05-01] MEDS: Cyanocobalamin (B-12) 1,000 MCG TABLET PO SCH (10:20)
[2018-05-01] MEDS: Carbidopa/Levodopa 25/100 TABLET PO SCH ×2 (10:20→18:08)
[2018-05-01] MEDS ORDERED: *HR* Midazolam HCl 2 MG/2 ML VIAL IVP ONE ×2 (13:00→13:20)
[2018-05-01] MEDS ORDERED: *HR* Midazolam HCl 5 MG/5 ML VIAL IVP ONE (13:00)
[2018-05-02] MEDS: Acetaminophen 325 MG TABLET PO PRN (00:06)
[2018-05-02] MEDS: Ascorbic Acid 500 MG TABLET PO SCH (06:34)
[2018-05-02] MEDS: Cyanocobalamin (B-12) 1,000 MCG TABLET PO SCH (08:23)
[2018-05-02] MEDS: Carbidopa/Levodopa 25/100 TABLET PO SCH ×2 (08:25→17:08)
[2018-05-02] MEDS: Rivastigmine Patch 4.6 MG PATCH.TD24 TD SCH (08:29)
[2018-05-02] MEDS: Artificial Tears SOLN 15 ML BOTTLE BOTH EYES SCH (08:33)
[2018-05-02] MEDS: Budesonide/Formoterol 80/4.5 MDI IH SCH ×2 (10:33→21:43)
--- NOTE | 2018-05-02 12:06 | Internal Med Progress Note ---
Date of Encounter: 05/02/18 Time of Encounter: 11:55 - Assessment and plan (1) Weakness Current Visit: Yes Status: Chronic Assessment and plan: April 22. Continue PT and OT intervention. April 25. Continue therapy interventions. His is exploring possible SNF placement. April 30. Anticipate discharge to [facility] 05/04/2018. (2) Lewy body dementia Current Visit: Yes Status: Acute Assessment and plan: April 22. Probable diagnosis based on clinical findings. Family had not heard this diagnoses mentioned by his neurologist in [place]. Exelon was decreased during acute care. Family admits use did not make any improvement clinically and is agreeable to continuing taper. April 23. Continue present management. April 30. Will decrease Exelon (now patch) and likely discontinue completely in 1 week. Qualifiers: Dementia behavioral disturbance: without behavioral disturbance Qualified Code(s): G31.83 - Dementia with Lewy bodies; F02.80 - Dementia in other diseases classified elsewhere without behavioral disturbance (3) Hyponatremia Current Visit: Yes Status: Acute Assessment and plan: April 22. Minimally changed. Continue to monitor. April 26. Recheck labs in a.m. April 30. Sodium improved to 131. Continue present management. (4) Anemia Current Visit: Yes Status: Acute Assessment and plan: April 22. Continue ferrous sulfate with vitamin C. Will start oral B12 supplement. April 26. Recheck labs in a.m. April 30. Hemoglobin minimally changed at 11.5. Continue present management. Qualifiers: Anemia type: unspecified type Qualified Code(s): D64.9 - Anemia, unspecified (5) Parkinsons disease Current Visit: No Status: Chronic Assessment and plan: April 22. Continue Sinemet (6) Costochondritis Current Visit: Yes Status: Acute Assessment and plan: April 23. Will give Naprosyn. April 24. He did not mention any further chest pain. Will change Naprosyn to prn. April 25. Continue Naprosyn when necessary. Encouraged him to ask for it if needed. April 26. Will give short course of prednisone and continue Naprosyn prn. April 30. Prednisone seems minimally effective. Will discontinue it and return to scheduled Naprosyn May 02. Continue present dose Naprosyn. - Subjective Interval history: April 22. He was hospitalized in acute-care April 18 after presenting with weakness and falls at home. Neutrophilic leukocytosis felt to be possibly secondary to acute gastritis resolved rapidly. Anemia testing showed B12 and iron deficiency. Treatment was given and will be continued. Hyponatremia showed minimal change. Statins were discontinued when lipid profile reflected improvement from weight loss. Swing bed was recommended to continue therapy for strengthening and balance. He has no new complaints today. April 23. He has no new complaints. April 24. He has no new complaints. He inquires when he can be discharged home. April 25. He has no new complaints. He inquired again when he will be discharged. April 26. He has no new complaints. He reports his chest pain has not resolved. April 30. He has no new complaints. He still has costosternal joint pain worsened with cough and deep inspiration. May 02. He has no new complaints - Constitutional Vitals: Temp Pulse Resp BP Pulse Ox 98.6 F 73 14 152/76 95 05/02/18 07:27 05/02/18 07:27 05/02/18 07:27 05/02/18 07:27 05/02/18 10:33 Exam: He is sitting in a chair at bedside eating lunch and appears comfortable. He has costosternal joint pain on right side lower sternal compression. His affect is overall cheerful. I reviewed his medications and lab results. Internal Medicine: Result - Labs CBC & Chem 7: 04/27/18 04:50 04/27/18 04:50 - ABG Interpretation ABG results: PT/INR, D-dimer PT 12.3 Seconds (9.4-12.1) H 04/22/18 04:36 - VTE Documentation of Mechanical Device: Graduated compression elastic hosiery Consult Discharge Plan - Plan Referrals: Ronald Becerril DO [Primary Care Provider] - 1 week
[2018-05-03] MEDS: Ascorbic Acid 500 MG TABLET PO SCH (06:29)
[2018-05-03] MEDS: Carbidopa/Levodopa 25/100 TABLET PO SCH ×2 (08:20→17:53)
[2018-05-03] MEDS: Rivastigmine Patch 4.6 MG PATCH.TD24 TD SCH (08:21)
[2018-05-03] MEDS: Cyanocobalamin (B-12) 1,000 MCG TABLET PO SCH (08:21)
[2018-05-03] MEDS: Artificial Tears SOLN 15 ML BOTTLE BOTH EYES SCH (08:22)
[2018-05-03] MEDS: Budesonide/Formoterol 80/4.5 MDI IH SCH ×2 (09:58→21:48)
[2018-05-04] MEDS: Ascorbic Acid 500 MG TABLET PO SCH (05:56)
[2018-05-04 07:00] VITALS: BP 126/71
[2018-05-04] MEDS: Carbidopa/Levodopa 25/100 TABLET PO SCH (08:25)
[2018-05-04] MEDS: Cyanocobalamin (B-12) 1,000 MCG TABLET PO SCH (08:25)
[2018-05-04] MEDS: Artificial Tears SOLN 15 ML BOTTLE BOTH EYES SCH (08:27)
[2018-05-04] MEDS: Rivastigmine Patch 4.6 MG PATCH.TD24 TD SCH (08:27)
[2018-05-04] MEDS: Budesonide/Formoterol 80/4.5 MDI IH SCH (10:53)
--- NOTE | 2018-05-04 10:55 | Discharge Summary ---
Orders not resulted at time of discharge: Pending orders 04/22/18 18:38 Bedside Swallowing Evaluation [EVAL] Routine Date of Encounter: 05/04/18 Time of Encounter: 10:45 - Discharge Diagnosis (1) Weakness Priority: Primary Status: Chronic (2) Lewy body dementia Priority: Secondary Status: Chronic Qualifiers: Dementia behavioral disturbance: without behavioral disturbance Qualified Code(s): G31.83 - Dementia with Lewy bodies; F02.80 - Dementia in other diseases classified elsewhere without behavioral disturbance (3) Hyponatremia Priority: Secondary Status: Acute (4) Anemia Priority: Secondary Status: Acute Qualifiers: Anemia type: unspecified type Qualified Code(s): D64.9 - Anemia, unspecified (5) Parkinsons disease Priority: Secondary Status: Chronic (6) Costochondritis Priority: Secondary Status: Acute Hospital course: Mr. Chaves is a 82 year old male who was hospitalized in acute-care April 18 after presenting with weakness and falls at home. Neutrophilic leukocytosis felt to be possibly secondary to acute gastritis resolved rapidly. Anemia testing showed B12 and iron deficiency. Treatment was given and will be continued. Hyponatremia showed minimal change. Statins were discontinued when lipid profile reflected improvement from weight loss. Swing bed was recommended to continue therapy for strengthening and balance. He made satisfactory improvement in therapy but was not felt to reach a level where he could function in the home environment. Arrangements were complete on May 04 for him to be discharged to [facility] for ongoing therapy intervention. Exelon will be discontinued on discharge to [facility] and cognition/behavior will be monitored. Sodium level improved to 131 on April 30. This will be monitored at [facility]. He will continue ferrous sulfate with vitamin C and Oral-B 12 supplement with labs monitored as needed. Sinemet will be continued for Parkinson's disease. Naprosyn was given with improvement in costochondritis symptoms. This will be continued for [address] [facility]. He will have therapy evaluation with ongoing intervention at [facility] I will follow with him there. - Time Spent with Patient Total time spent providing and/or coordinating discharge services: - Discharge Medications Home Medications: Fluticasone/Salmeterol [Advair 250-50 Diskus] 1 puff IH BID 06/18/15 [History] Carbidopa/Levodopa 25/100 [Sinemet 25/100] 1 each PO BID 04/18/18 [History] Carbidopa/Levodopa 25/100 [Sinemet 25/100] 1.5 each PO QAM 04/18/18 [History] Artificial Tears SOLN [Akwa Tears] 1 drop BOTH EYES DAILY bottle 04/21/18 [Rx] Ascorbic Acid [Vitamin C] 500 mg PO 0630 tablet 04/21/18 [Rx] Ferrous Sulfate 325 mg PO 0630 tablet 04/21/18 [Rx] Sertraline [Zoloft] 25 mg PO HS tablet 04/21/18 [Rx] Cyanocobalamin (B-12) [Vitamin B12] 1,000 mcg PO DAILY tablet 05/04/18 [Rx] Naproxen [Naprosyn] 500 mg PO BIDWM 2 Days tablet 05/04/18 [Rx] Omeprazole [PriLOSEC] 20 mg PO DAILY@0630 PRN #0 capsule. 05/04/18 [Rx] Allergies/Adverse Reactions: 3 Allergy/AdvReac Type Severity Reaction Status Date / Time No Known Allergies Allergy Verified 11/07/17 19:01 Date of admission: 04/21/18 18:10 Primary care physician: Ronald Becerril, Consults: 04/21/18 18:18 Consult to Occupational Therapy [CONS] Routine Comment: evaluate, develop and implement POC Reason for Consult: evaluate develop and implement POC Does patient have active BEDREST order?: No Is patient medically & hemodynamically stable?: Yes Patient assessed for mobility or mobilized this visit?: Yes Consult to Physical Therapy [CONS] Routine Comment: Evaluate patient, develop POC, and implement POC Reason for Consult: evaluate develop and implement POC Does patient have active BEDREST order?: No Is patient medically & hemodynamically stable?: Yes Patient assessed for mobility or mobilized this visit?: Yes Consult to Apprentice/Lineman [CONS] Routine Reason for SW Consult: Discharge planning 04/22/18 18:42 Consult to Speech Therapy [CONS] Routine Comment: Evaluate, develop and implement POC Reason for Consult: coughing while eating and pain with cough Call Completed: No - Constitutional Vitals: Temp Pulse Resp BP Pulse Ox 98.4 F 65 16 126/71 97 05/04/18 06:58 05/04/18 06:58 05/04/18 06:58 05/04/18 06:58 05/04/18 06:58 - Patient Status Disposition: Transfer SNF - Discharge Instructions - Diet and Activity Activity: as per physical therapy Diet: regular diet - VTE Documentation of Mechanical Device: Graduated compression elastic hosiery
--- NOTE | 2018-05-04 11:04 | Physician Discharge Referral ---
ExtendedCare Referral Info Transfer To: [facility] Provider in Charge: Nick Provider in Charge after Transfer: PCP Augustus) Institutional Level of Care: Skilled - Diagnosis (1) Weakness Priority: Primary Status: Chronic (2) Lewy body dementia Priority: Secondary Status: Chronic (3) Hyponatremia Priority: Secondary Status: Acute (4) Anemia Priority: Secondary Status: Acute (5) Parkinsons disease Priority: Secondary Status: Chronic (6) Costochondritis Priority: Secondary Status: Acute Prognosis: Fair Aware of Diagnosis: Patient, Family Aware of Prognosis: Patient, Family - Transfer Medications Home Medications: Fluticasone/Salmeterol [Advair 250-50 Diskus] 1 puff IH BID 06/18/15 [History] Carbidopa/Levodopa 25/100 [Sinemet 25/100] 1 each PO BID 04/18/18 [History] Carbidopa/Levodopa 25/100 [Sinemet 25/100] 1.5 each PO QAM 04/18/18 [History] Artificial Tears SOLN [Akwa Tears] 1 drop BOTH EYES DAILY bottle 04/21/18 [Rx] Ascorbic Acid [Vitamin C] 500 mg PO 0630 tablet 04/21/18 [Rx] Ferrous Sulfate 325 mg PO 0630 tablet 04/21/18 [Rx] Sertraline [Zoloft] 25 mg PO HS tablet 04/21/18 [Rx] Cyanocobalamin (B-12) [Vitamin B12] 1,000 mcg PO DAILY tablet 05/04/18 [Rx] Naproxen [Naprosyn] 500 mg PO BIDWM 2 Days tablet 05/04/18 [Rx] Omeprazole [PriLOSEC] 20 mg PO DAILY@0630 PRN #0 capsule. 05/04/18 [Rx] Allergies/Adverse Reactions: 3 Allergy/AdvReac Type Severity Reaction Status Date / Time No Known Allergies Allergy Verified 11/07/17 19:01 - Respiratory Orders Smoking Cessation: Smoking cessation has been advised. For more information, call the [place] Tobacco Quit Line at 6-381-NJQM-NOW. - Lab Orders Lab Orders: Other (include drug levels w/frequency) (CBC with differential, BMP in 5 days. Anemia testing, CBC with differential, BMP every 3 months.) - Mobility Orders Ambulate - Rehabiliation Orders Rehab Potential: Fair Rehab Orders: Evaluation for Physical Therapy, Evaluation for Occupational Therapy - Diet Orders Regular CERTIFICATION: I certify that the transfer of the above named patient to an Extended Care Facility is necessary for the continuing treatment of the diagnosis listed. The above information is true and accurate reflection of patient's current condition. Confidential - Redisclosure prohibited without a patient's written consent.
== END 2018-05-04 13:00 | DRG 945 ==
LOC: INPPIK 04-21 18:10
PROVIDERS: ADMIT Internal Medicine; ATTEND Internal Medicine

== ENCOUNTER 2019-11-04 01:35 | Inpatient (IN) ==
[2019-11-04] MEDS ORDERED: Ipratropium/Albuterol Neb 3 ML IH ONE (01:38)
[2019-11-04 02:23] LABS: Basophils % 0.4 %; Eosinophils # 0.4 K/mcL (0.0-0.6); Eosinophils % 4.3 %; Hematocrit 38.2 % (37.5-50.1); Immature Granulocytes % 0.3 % (0-4); Lymphocytes # 2.8 K/mcL (0.6-4.6); Lymphocytes % 28.3 %; Mean Corpuscular Hemoglobin 33.3 pg (28.0-33.3); Mean Corpuscular Volume 97.9 fL (83.0-100.0); Mean Platelet Volume 10.5 fL (9.4-12.4); Monocytes # 0.6 K/mcL (0.0-1.3); Monocytes % 6.1 %; Platelet Count 193 K/mcL (140-400); Red Cell Distribution Width 11.9 % (11.5-14.5); Segmented Neutrophils % 60.6 %; White Blood Count 9.9 K/mcL (4.3-11.1)
[2019-11-04] MEDS ORDERED: levoFLOXacin 750 MG/150 ML 750 MG/150 ML BAG IVPB ONE (02:31)
[2019-11-04 02:40] LABS: Alanine Aminotransferase 15 Units/L (7-52); Albumin 3.6 g/dL (3.5-5.7); Albumin/Globulin Ratio 1.1 (1.1-2.2); Alkaline Phosphatase 45 Units/L (34-104); Aspartate Amino Transferase 16 Units/L (13-39); Bilirubin,Direct 0.1 mg/dL (0.0-0.2); Bilirubin,Indirect 0.7 mg/dL (0.0-1.0); Bilirubin,Total 0.8 mg/dL (0.3-1.0); Globulin 3.2 g/dL (2.4-3.5); Total Protein 6.8 g/dL (6.4-8.9)
[2019-11-04 02:41] LABS: BUN/Creatinine Ratio 21 (6-26); Blood Urea Nitrogen 15 mg/dL (8-23); Calcium 9.1 mg/dL (8.6-10.3); Carbon Dioxide 27 mEq/L (23-29); Chloride 102 mEq/L (98-107); Glucose 101 mg/dL (70-105); Osmolality,Calculated 283 (280-300); Potassium 4.1 mEq/L (3.5-5.1); Sodium 136 mEq/L (136-145); eGFR For African Americans > 60 (> 60); eGFR For Non-African Americans > 60 (> 60)
[2019-11-04 02:43] LABS: Troponin I < 0.03 ng/mL (< 0.04)
[2019-11-04] MEDS ORDERED: Naloxone 0.4 MG/ML INJ IVP PRN (03:56)
[2019-11-04] MEDS: Ipratropium/Albuterol Neb 3 ML IH SCH ×6 (04:26→23:11)
[2019-11-04] MEDS: 0.9 % Sodium Chloride 1,000 ML IVC SCH ×2 (04:30→16:24)
[2019-11-04] MEDS: 0.9 % Sodium Chloride 500 ML IV ONE ×2 (08:05→08:26)
[2019-11-04] MEDS: Famotidine 20 MG TABLET PO SCH (08:26)
[2019-11-04] MEDS: Carbidopa/Levodopa 25/100 TABLET PO SCH ×2 (08:26→19:58)
[2019-11-04] MEDS: Cyanocobalamin (B-12) 1,000 MCG TABLET PO SCH (08:26)
[2019-11-04] MEDS: Artificial Tears SOLN 15 ML BOTTLE BOTH EYES SCH (08:33)
[2019-11-04] MEDS: Fluticasone Propionate Nasal 50 MCG/SPRAY BOTTLE NS SCH (08:33)
[2019-11-04] MEDS: Budesonide/Formoterol 80/4.5 1 PUFF INH IH SCH ×2 (09:23→19:31)
[2019-11-04] MEDS ORDERED: levoFLOXacin 750 MG/150 ML 750 MG/150 ML BAG IVPB SCH (18:00)
[2019-11-05] MEDS: 0.9 % Sodium Chloride 1,000 ML IVC SCH ×2 (00:01→15:59)
[2019-11-05] MEDS: levoFLOXacin 750 MG/150 ML 750 MG/150 ML BAG IVPB SCH (02:47)
[2019-11-05] MEDS: Ipratropium/Albuterol Neb 3 ML IH SCH ×5 (03:42→20:54)
[2019-11-05] MEDS: *HR* Enoxaparin 40 MG/0.4 ML SYRINGE SQ SCH (06:05)
[2019-11-05] MEDS: Budesonide/Formoterol 80/4.5 1 PUFF INH IH SCH ×2 (07:36→21:00)
[2019-11-05 07:46] LABS: Alanine Aminotransferase 9 Units/L (7-52); Albumin 2.8 g/dL (3.5-5.7); Albumin/Globulin Ratio 1.1 (1.1-2.2); Alkaline Phosphatase 29 Units/L (34-104); Aspartate Amino Transferase 12 Units/L (13-39); BUN/Creatinine Ratio 18 (6-26); Bilirubin,Total 0.5 mg/dL (0.3-1.0); Blood Urea Nitrogen 12 mg/dL (8-23); Calcium 7.9 mg/dL (8.6-10.3); Carbon Dioxide 23 mEq/L (23-29); Chloride 108 mEq/L (98-107); Globulin 2.5 g/dL (2.4-3.5); Glucose 82 mg/dL (70-105); Osmolality,Calculated 285 (280-300); Potassium 3.7 mEq/L (3.5-5.1); Sodium 138 mEq/L (136-145); Total Protein 5.3 g/dL (6.4-8.9); eGFR For African Americans > 60 (> 60); eGFR For Non-African Americans > 60 (> 60)
[2019-11-05] MEDS: Famotidine 20 MG TABLET PO SCH (08:01)
[2019-11-05] MEDS: Cyanocobalamin (B-12) 1,000 MCG TABLET PO SCH (08:01)
[2019-11-05] MEDS: Carbidopa/Levodopa 25/100 TABLET PO SCH ×2 (08:02→19:52)
[2019-11-05] MEDS: Artificial Tears SOLN 15 ML BOTTLE BOTH EYES SCH (08:03)
[2019-11-05] MEDS: Fluticasone Propionate Nasal 50 MCG/SPRAY BOTTLE NS SCH (08:03)
[2019-11-05 10:07] LABS: Adenovirus Not Detected (Not Detect); Bordetella Pertussis Not Detected (Not Detect); Chlamydophila pneumoniae Not Detected (Not Detect); Coronavirus 229E Not Detected (Not Detect); Coronavirus HKU1 Not Detected (Not Detect); Coronavirus NL63 Not Detected (Not Detect); Coronavirus OC43 Not Detected (Not Detect); Human Metapneumovirus Not Detected (Not Detect); Human Rhinovirus/Enterovirus Not Detected (Not Detect); Influenza A Subtype 2009 H1 Not Detected (Not Detect); Influenza B Not Detected (Not Detect); Mycoplasma pneumoniae Not Detected (Not Detect); Parainfluenza Virus 1 Not Detected (Not Detect); Parainfluenza Virus 2 Not Detected (Not Detect); Parainfluenza Virus 3 Not Detected (Not Detect); Parainfluenza Virus 4 Not Detected (Not Detect); Respiratory Syncytial Virus Not Detected (Not Detect)
[2019-11-05 12:30] LABS: Hematocrit 29.6 % (37.5-50.1); Mean Corpuscular HGB Conc 33.8 g/dL (31.6-35.5); Mean Corpuscular Hemoglobin 33.8 pg (28.0-33.3); Mean Platelet Volume 11.2 fL (9.4-12.4); Platelet Count 140 K/mcL (140-400); Red Blood Count 2.96 M/mcL (4.19-5.50); White Blood Count 5.6 K/mcL (4.3-11.1)
[2019-11-05] MEDS ORDERED: 0.9 % Sodium Chloride 1,000 ML ONE (15:59)
[2019-11-06] MEDS: Ipratropium/Albuterol Neb 3 ML IH SCH ×4 (00:40→12:45)
[2019-11-06] MEDS: levoFLOXacin 750 MG/150 ML 750 MG/150 ML BAG IVPB SCH (03:13)
[2019-11-06] MEDS: *HR* Enoxaparin 40 MG/0.4 ML SYRINGE SQ SCH (05:59)
[2019-11-06 07:16] LABS: Hematocrit 31.7 % (37.5-50.1); Hemoglobin 10.9 g/dL (12.9-16.9); Mean Corpuscular HGB Conc 34.4 g/dL (31.6-35.5); Mean Corpuscular Hemoglobin 33.7 pg (28.0-33.3); Mean Corpuscular Volume 98.1 fL (83.0-100.0); Mean Platelet Volume 10.8 fL (9.4-12.4); Platelet Count 151 K/mcL (140-400); Red Blood Count 3.23 M/mcL (4.19-5.50); Red Cell Distribution Width 11.9 % (11.5-14.5); White Blood Count 6.9 K/mcL (4.3-11.1)
[2019-11-06] MEDS: Budesonide/Formoterol 80/4.5 1 PUFF INH IH SCH (07:37)
[2019-11-06 08:01] LABS: BUN/Creatinine Ratio 13 (6-26); Blood Urea Nitrogen 9 mg/dL (8-23); Calcium 8.5 mg/dL (8.6-10.3); Carbon Dioxide 24 mEq/L (23-29); Chloride 105 mEq/L (98-107); Glucose 82 mg/dL (70-105); Osmolality,Calculated 282 (280-300); Potassium 3.8 mEq/L (3.5-5.1); Sodium 137 mEq/L (136-145); eGFR For African Americans > 60 (> 60); eGFR For Non-African Americans > 60 (> 60)
[2019-11-06] MEDS: Fluticasone Propionate Nasal 50 MCG/SPRAY BOTTLE NS SCH (09:09)
[2019-11-06] MEDS: Famotidine 20 MG TABLET PO SCH (09:10)
[2019-11-06] MEDS: Carbidopa/Levodopa 25/100 TABLET PO SCH (09:10)
[2019-11-06] MEDS: Artificial Tears SOLN 15 ML BOTTLE BOTH EYES SCH (09:10)
[2019-11-06] MEDS: Cyanocobalamin (B-12) 1,000 MCG TABLET PO SCH (09:10)
[2019-11-06 10:49] VITALS: BP 115/75
== END 2019-11-06 14:12 | DRG 194 ==
LOC: INPPIK 01:35 → EMEROOPIK 01:35 → INPPIK 04:30
PROVIDERS: ADMIT Family Medicine; ATTEND Family Medicine